=== PATIENT | female | born 1950 | race Caucasian/White ===

== ENCOUNTER → 2016-04-12 | Outpatient (CLI) | payer MEDICAID ==
[2016-04-12 17:00] LABS: ALANINE AMINOTRANSFERASE 24 U/L (9-52); ALBUMIN 4.2 g/dL (3.5-5.0); ALKALINE PHOSPHATASE 72 U/L (38-126); ANION GAP 10 (5-19); ASPARTATE AMINO TRANSFERASE 21 U/L (14-36); BILIRUBIN,TOTAL 0.4 mg/dL (0.2-1.3); BLOOD UREA NITROGEN 19 mg/dL (7-20); CARBON DIOXIDE 32 mmol/L (22-30); CHLORIDE 97 mmol/L (98-107); CREATININE RESULT 0.73 mg/dL (0.52-1.25); GLUCOSE 70 mg/dL (75-110); MAGNESIUM 2.1 mg/dL (1.6-2.3); POTASSIUM 4.2 mmol/L (3.6-5.0); TOTAL PROTEIN 7.1 g/dL (6.3-8.2)
== END ==
LOC: OD 15:29
PROVIDERS: ATTEND Internal Medicine Cardiovascular Disease
DX: R18.8 Other ascites (principal)
CPT/HCPCS: 36415; 80053; 83735; 83880

== ENCOUNTER 2016-10-28 19:41 | Emergency (ER) | payer MEDICAID ==
[2016-10-28] MEDS ORDERED: ASPIRIN 81 MG TABLET, CHEWABLE PO ONE (20:06)
--- NOTE | 2016-10-28 20:09 | ER Document Report ---
ED Medical Screen (RME) - General Chief Complaint: Chest Tightness Stated Complaint: CHEST PAIN,FALL/SWOLLEN FEET Time Seen by Provider: 10/28/16 20:06 Mode of Arrival: Ambulatory Information source: Patient Notes: 35-year-old female presents to ED for bilateral pedal edema with tightness in her chest. She states the swelling is been for a week but the tightness in her chest is been since the morning. She states she fell yesterday and now today she has pain in her right fifth toe that is turning dark. He has a past medical history of CHF mitral valve regurgitation cardiomyopathy blood pressure cholesterol anxiety. She states she has a 20% ejection fraction has a history of arthritis. I have greeted and performed a rapid initial assessment of this patient. A comprehensive ED assessment and evaluation of the patient, analysis of test results and completion of medical decision making process will be conducted by an additional ED providers. TRAVEL OUTSIDE OF THE [place] IN LAST 30 DAYS: No - Related Data Allergies/Adverse Reactions: Penicillins Allergy (Verified 01/18/16 12:49) Past Medical History - Past Medical History Cardiac Medical History: Reports: Hx Congestive Heart Failure Pulmonary Medical History: Reports: Hx Asthma Neurological Medical History: Reports: Hx Migraine Musculoskeltal Medical History: Reports Hx Fibromyalgia Past Surgical History: Reports: Hx Hysterectomy
[2016-10-28 20:31] LABS: ABSOLUTE BASOPHILS # (AUTO) 0.1 10^3/uL (0.0-0.2); ABSOLUTE EOSINOPHILS # (AUTO) 0.1 10^3/uL (0.0-0.6); ABSOLUTE LYMPHOCYTES (AUTO) 2.9 10^3/uL (0.5-4.7); ABSOLUTE MONOCYTES (AUTO) 0.8 10^3/uL (0.1-1.4); ABSOLUTE NEUT (AUTO) 8.7 10^3/uL (1.7-8.2); BASOPHILS % (AUTO) 0.7 % (0-2); EOSINOPHILS % (AUTO) 1.2 % (0-6); HEMATOCRIT 40.8 % (36.0-47.0); HGB HCT DIFFERENCE 1.2; LYMPHOCYTES % (AUTO) 23.2 % (13-45); MEAN CORPUSCULAR HEMOGLOBIN 30.7 pg (27.0-33.4); MEAN CORPUSCULAR HGB CONC 34.3 g/dL (32.0-36.0); MEAN CORPUSCULAR VOLUME 89 fl (80-97); MONOCYTES % (AUTO) 6.2 % (3-13); RED BLOOD COUNT 4.56 10^6/uL (3.72-5.28); RED CELL DISTRIBUTION WIDTH 14.9 % (11.5-14.0); SEGMENTED NEUTROPHILS % (AUTO) 68.7 % (42-78); WHITE BLOOD COUNT 12.6 10^3/uL (4.0-10.5)
--- NOTE | 2016-10-28 20:44 | RADIOLOGY REPORT (SQ) ---
EXAM DESCRIPTION: CHEST PA/LAT COMPLETED DATE/TIME: 10/28/2016 8:35 pm REASON FOR STUDY: chest pain chf ankle edema COMPARISON: 03/29/2016 EXAM PARAMETERS: NUMBER OF VIEWS: two views TECHNIQUE: Digital Frontal and Lateral radiographic views of the chest acquired. RADIATION DOSE: NA LIMITATIONS: none FINDINGS: LUNGS AND PLEURA: No opacities, masses or pneumothorax. No pleural effusion. MEDIASTINUM AND HILAR STRUCTURES: No masses or contour abnormalities. HEART AND VASCULAR STRUCTURES: Heart normal size. No evidence for failure. BONES: No acute findings. HARDWARE: None in the chest. OTHER: No other significant finding. IMPRESSION: NO SIGNIFICANT RADIOGRAPHIC FINDING IN THE CHEST. TECHNICAL DOCUMENTATION: JOB ID: [id number] [employer]- All Rights Reserved
[2016-10-28 20:45] LABS: ALANINE AMINOTRANSFERASE 37 U/L (9-52); ALBUMIN 4.5 g/dL (3.5-5.0); ALKALINE PHOSPHATASE 68 U/L (38-126); ANION GAP 9 (5-19); ASPARTATE AMINO TRANSFERASE 29 U/L (14-36); BILIRUBIN,DIRECT 0.4 mg/dL (0.0-0.4); BILIRUBIN,TOTAL 0.6 mg/dL (0.2-1.3); BLOOD UREA NITROGEN 17 mg/dL (7-20); CARBON DIOXIDE 31 mmol/L (22-30); CHLORIDE 102 mmol/L (98-107); CREATINE KINASE 138 U/L (30-135); CREATININE RESULT 0.88 mg/dL (0.52-1.25); GLUCOSE 98 mg/dL (75-110); MAGNESIUM 1.9 mg/dL (1.6-2.3); POTASSIUM 3.3 mmol/L (3.6-5.0); SODIUM 141.9 mmol/L (137-145); TOTAL PROTEIN 7.4 g/dL (6.3-8.2)
--- NOTE | 2016-10-28 20:45 | RADIOLOGY REPORT (SQ) ---
EXAM DESCRIPTION: FOOT RIGHT COMPLETE COMPLETED DATE/TIME: 10/28/2016 8:35 pm REASON FOR STUDY: pain and swelling to 5th toe COMPARISON: None. NUMBER OF VIEWS: Three views. TECHNIQUE: AP, lateral and oblique radiographic images acquired of the right foot. LIMITATIONS: None. FINDINGS: MINERALIZATION: Normal. BONES: Old healed fracture of the 5th metatarsal. JOINTS: No effusions. SOFT TISSUES: No soft tissue swelling. No foreign body. OTHER: No other significant finding. IMPRESSION: Old healed fracture of the 5th metatarsal. TECHNICAL DOCUMENTATION: JOB ID: [id number] [employer]- All Rights Reserved
[2016-10-28 20:58] LABS: CREATINE KINASE MB 1.83 ng/mL (<4.55); TROPONIN I < 0.012 ng/mL
[2016-10-28 23:52] VITALS: BP 106/72
[2016-10-29] MEDS ORDERED: FUROSEMIDE INJ/PF 40 MG/4 ML SDV IV ONE (00:25)
--- NOTE | 2016-10-29 00:31 | ER Document Report ---
ED General - General Chief Complaint: Chest Tightness Stated Complaint: CHEST PAIN,FALL/SWOLLEN FEET Time Seen by Provider: 10/28/16 20:06 Mode of Arrival: Ambulatory Notes: Patient is a 65-year-old female with past medical history of CHF, EF of 20%, who presents with bilateral lower extremity swelling for the past 2 weeks that is gotten progressively worse. States she has been taking Bumex 2 mg twice daily without resolution. States that usually she retained fluid in her lower abdomen not in her legs. She does report an associated dull, constant, aching pain to the bilateral lower legs which is not improved by anything and is worsened by movement or walking. She denies any shortness of breath, orthopnea or pain radiating into her arms, jaw or back. States she did have a brief episode of right-sided chest pain that she describes a mild, throbbing pain that resolved shortly after it started at approximately 8 or 9 AM this morning has not had recurrence since. She has not seen her primary care doctor or [employer] network architect regarding today's concerns. TRAVEL OUTSIDE OF THE [place] IN LAST 30 DAYS: No - Related Data Allergies/Adverse Reactions: Penicillins Allergy (Verified 10/28/16 20:11) Past Medical History - General Information source: Patient - Social History Smoking Status: Current Every Day Smoker Chew tobacco use (# tins/day): No Frequency of alcohol use: Occasional Drug Abuse: None Lives with: Spouse/Significant other Family History: Reviewed & Not Pertinent, Other Patient has suicidal ideation: No Patient has homicidal ideation: No - Past Medical History Cardiac Medical History: Reports: Hx Congestive Heart Failure, Hx Hypertension Pulmonary Medical History: Reports: Hx Asthma Neurological Medical History: Reports: Hx Migraine Renal/ Medical History: Denies: Hx Peritoneal Dialysis Musculoskeltal Medical History: Reports Hx Fibromyalgia Past Surgical History: Reports: Hx Hysterectomy - Immunizations Hx Diphtheria, Pertussis, Tetanus Vaccination: Yes Review of Systems - Review of Systems Notes: Constitutional: Negative for fever. HENT: Negative for sore throat. Eyes: Negative for visual changes. Cardiovascular: Negative for chest pain. Respiratory: Negative for shortness of breath. Gastrointestinal: Negative for abdominal pain, vomiting or diarrhea. Genitourinary: Negative for dysuria. Musculoskeletal: Positive for bilateral leg pain Skin: Negative for rash. Neurological: Negative for headaches, weakness or numbness. 10 point ROS negative except as marked above and in HPI. Physical Exam - Vital signs Vitals: Temp Pulse Resp BP Pulse Ox 98.6 F 91 16 121/87 H 99 10/28/16 20:02 10/28/16 20:02 10/28/16 20:02 10/28/16 20:02 10/28/16 20:02 Interpretation: Normal Notes: PHYSICAL EXAMINATION: GENERAL: Well-appearing, well-nourished and in no acute distress. HEAD: Atraumatic, normocephalic. EYES: Pupils equal round and reactive to light, extraocular movements intact, sclera anicteric, conjunctiva are normal. ENT: nares patent, oropharynx clear without exudates. Moist mucous membranes. NECK: Normal range of motion, supple without lymphadenopathy LUNGS: Breath sounds clear to auscultation bilaterally and equal. No wheezes rales or rhonchi. HEART: Regular rate and rhythm without murmurs ABDOMEN: Soft, nontender, normoactive bowel sounds. No guarding, no rebound. No masses appreciated. EXTREMITIES: Normal range of motion, 2+ pitting edema in the bilateral lower extremities to the mid tibial surface equal and symmetric NEUROLOGICAL: No focal neurological deficits. Moves all extremities spontaneously and on command. PSYCH: Normal mood, normal affect. SKIN: Warm, Dry, normal turgor, no rashes or lesions noted. Course - Re-evaluation Re-evalutation: 10/29/16 00:27 Patient presents with concerns of bilateral lower extremity edema that is been present for the past 1 week that is causing difficulty with mobility. Patient is overall well in appearance, no acute distress, vitals within normal limits at time of my assessment. She has no tachypnea, hypoxemia or tachycardia. Patient did complain of some right-sided chest tightness earlier today but that resolved over 8 hours prior to presentation. Patient does have 2+ pitting edema in the bilateral lower extremities, 4+ in the pedal region. It is equal and symmetric. I do not suspect an acute DVT. Patient does have a history of congestive heart failure with an ejection fraction of 20% and does currently take bumetanide 2 mg twice daily. She has requested a dose of IV Lasix here in the emergency department which I am agreeable to. She will be given a single dose of 40 mg IV and loss of compression stockings placed prior to discharge. I have instructed her to begin taking Bumex 2 mg 3 times daily for 3 days and then return to her normal dosing. I have also instructed her to follow-up closely with her cis[employer] network architect that she may need long-term just dosing adjustment for her diuretic. Regarding her episode of chest pressure, I do not suspect acute coronary syndrome, acute PE or aortic dissection. EKG without ischemic changes, troponin is normal, chest x-ray without evidence of pulmonary edema, pneumothorax or widened mediastinum. She is pain-free at time of my assessment. At this time will discharge with return precautions and follow-up recommendations. Verbal discharge instructions given a the bedside and opportunity for questions given. Medication warnings reviewed. Patient is in agreement with this plan and has verbalized understanding of return precautions and the need for primary care follow-up in the next 24-72 hours. - Vital Signs Vital signs: Temp Pulse Resp BP Pulse Ox 98.6 F 76 16 106/72 95 10/28/16 20:02 10/28/16 23:46 10/28/16 23:46 10/28/16 23:46 10/28/16 23:46 - Laboratory Result Diagrams: 10/28/16 20:10 10/28/16 20:10 Laboratory results interpreted by me: 10/28/16 10/28/16 10/28/16 20:10 20:10 20:10 WBC 12.6 H RDW 14.9 H Absolute Neutrophils 8.7 H Potassium 3.3 L Carbon Dioxide 31 H Creatine Kinase 138 H NT-Pro-B Natriuret Pep 1310 H - Diagnostic Test Radiology reviewed: Image reviewed, Reports reviewed Radiology results interpreted by me: 10/29/16 00:30 Chest x-ray: No pulmonary edema, vascular congestion or widened mediastinum - EKG Interpretation by Me Additional EKG results interpreted by me: 10/29/16 00:30 Normal sinus rhythm. Rate 89. No ST elevations or depressions. QTC is 492. Discharge - Discharge Clinical Impression: Bilateral lower extremity edema Chest pain Qualifiers: Chest pain type: unspecified Qualified Code(s): R07.9 - Chest pain, unspecified Condition: Good Disposition: HOME, SELF-CARE Additional Instructions: Increase your bumetanide also known as Bumex to 2 mg 3 times daily for the next 3 days. After that please return to normal dosing of 2 mg twice daily. Wear the compression stockings. This should result in decreased fluid in your legs. Please follow-up with your cisco network architect in the next several days to discuss if you need long-term dosing adjustment to your diuretic. Return for any additional symptoms that are worrisome to you including chest pain, shortness of breath, passing out, or any other symptoms that are worrisome to you. Referrals: ALVARADO BAXTER MD [Primary Care Provider] - Follow up as needed
--- NOTE | 2016-10-29 03:37 | EKG REPORT ---
SEVERITY:- ABNORMAL ECG - SINUS RHYTHM PROBABLE LEFT ATRIAL ABNORMALITY CONSIDER POSTERIOR INFARCT BORDERLINE PROLONGED QT INTERVAL : Confirmed by: Abbie Hoffman MD 29-Oct-2016 03:36:30
== END 2016-10-29 01:06 | disposition home or self-care (01) ==
LOC: ER 19:41
DX: I11.0 Hypertensive heart disease with heart failure (principal); I50.9 Heart failure, unspecified; R60.0 Localized edema; M79.662 Pain in left lower leg; M79.661 Pain in right lower leg; R07.89 Other chest pain; J45.909 Unspecified asthma, uncomplicated; F17.200 Nicotine dependence, unspecified, uncomplicated; Z79.899 Other long term (current) drug therapy
CPT/HCPCS: 93005; 99285; 96374; 36415; 82553; 82550; 83735; 85025; 80053; 84484; 85379; 83880; 71020; 73630; 93010; J1940

== ENCOUNTER 2017-03-01 07:13 | Emergency (ER) | payer MEDICAID ==
--- NOTE | 2017-03-01 08:06 | ER Document Report ---
ED General <GARLAND CASTORNEA - Last Filed: 03/01/17 11:53> - General Mode of Arrival: Ambulatory Information source: Patient TRAVEL OUTSIDE OF THE [place] IN LAST 30 DAYS: No <ERMA HUSSEIN - Last Filed: 03/01/17 14:19> - General Chief Complaint: Dizziness Stated Complaint: WEAKNESS Time Seen by Provider: 03/01/17 07:39 Notes: Patient is a 66 year old female that presents to the emergency department today with complaints of vomiting which began last night at 2300. Patient states that she has not vomited or felt nauseated since receiving zofran from EMS on her way here. Patient states she had a fall one or two days ago and after that fall she developed "immediate short term memory loss". Patient mentions that she attempted to call her girlfriend in [place] but could not remember her number which is unusual as she calls her on a daily basis. Patient states she thinks she fell on her knees as they were scraped up. Patient is somewhat of a poor historian so history is limited. (ERMA HUSSEIN) - Related Data Allergies/Adverse Reactions: Penicillins Allergy (Verified 10/28/16 20:11) Past Medical History - General Information source: Patient - Social History Smoking Status: Current Every Day Smoker Cigarette use (# per day): Yes Frequency of alcohol use: None Drug Abuse: None Lives with: Family Family History: Reviewed & Not Pertinent, Other Patient has suicidal ideation: No Patient has homicidal ideation: No - Past Medical History Cardiac Medical History: Reports: Hx Congestive Heart Failure, Hx Hypertension Pulmonary Medical History: Reports: Hx Asthma Neurological Medical History: Reports: Hx Migraine Musculoskeltal Medical History: Reports Hx Fibromyalgia Past Surgical History: Reports: Hx Hysterectomy - Immunizations Hx Diphtheria, Pertussis, Tetanus Vaccination: Yes <ERMA HUSSEIN - Last Filed: 03/01/17 14:19> Review of Systems - Review of Systems Constitutional: No symptoms reported EENT: See HPI, Other - dry mouth Cardiovascular: No symptoms reported Respiratory: No symptoms reported Gastrointestinal: See HPI, Vomiting Genitourinary: No symptoms reported Female Genitourinary: No symptoms reported Musculoskeletal: No symptoms reported Skin: No symptoms reported Hematologic/Lymphatic: No symptoms reported Neurological/Psychological: See HPI, Other - "short term memory loss" -: Yes All other systems reviewed and negative <JOVITAERMA - Last Filed: 03/01/17 14:19> Physical Exam <GARLAND CASTORENA - Last Filed: 03/01/17 11:53> - Vital signs Interpretation: Normal - General General appearance: Appears well, Alert, Other - wearing sunglasses - HEENT Head: Normocephalic, Atraumatic Eyes: Normal Pupils: PERRL - Respiratory Respiratory status: No respiratory distress Breath sounds: Rhonchi, Wheezing, Other - not dyspneic Chest palpation: Normal - Cardiovascular Rhythm: Regular Heart sounds: Normal auscultation Murmur: No - Abdominal Inspection: Normal Distension: No distension Bowel sounds: Normal Tenderness: Nontender Organomegaly: No organomegaly - Back Back: Normal, Nontender - Extremities General upper extremity: Normal inspection, Normal ROM. No: Edema General lower extremity: Normal inspection, Normal ROM. No: Edema - Neurological Neuro grossly intact: Yes Cognition: Normal Orientation: AAOx4 Hawley Coma Scale Eye Opening: Spontaneous Hawley Coma Scale Verbal: Oriented Purnima Coma Scale Motor: Obeys Commands Hawley Coma Scale Total: 15 Speech: Normal - Psychological Associated symptoms: Normal affect, Normal mood - Skin Skin Temperature: Warm Skin Moisture: Dry Skin Color: Normal <JOVITAERMA - Last Filed: 03/01/17 14:19> - Vital signs Vitals: Temp Pulse Resp Pulse Ox 97.9 F 93 17 95 03/01/17 07:25 03/01/17 07:25 03/01/17 07:25 03/01/17 07:25 - HEENT Notes: no nystagmus (ERMA HUSSEIN) Course - Laboratory Result Diagrams: 03/01/17 08:55 03/01/17 08:55 - Diagnostic Test Radiology reviewed: Image reviewed, Reports reviewed - CT scan of the head is unremarkable. MRI of the brain is unremarkable. - EKG Interpretation by [place] EKG shows normal: Sinus rhythm, [place], Intervals, QRS Complexes. abnormal: ST-T Waves - Patient has inverted T waves in the lateral leads. This was not present in September of this year, however it was present on the EKG done prior to that one. Rate: Normal - 95 Rhythm: NSR <GARLAND CASTORENA - Last Filed: 03/01/17 11:53> - Laboratory Result Diagrams: 03/01/17 08:55 03/01/17 08:55 <ERMA HUSSEIN - Last Filed: 03/01/17 14:19> - Re-evaluation Re-evalutation: 03/01/17 11:53 Patient is quite anxious. She keeps wanting to know "what is causing all of this". When I asked her to explain she says when she lays down air comes up out of her, and she gets nauseous. There are multiple confusing vague complaints, including her complaint of short-term memory loss. I did an MRI of her brain which is unremarkable. I asked her about running out of her Xanax and she admits to running out 2 days ago and was supposed to see her doctor at 11:00 today to get refills. She is on chronic narcotic and benzodiazepine maintenance for many years. I advised the patient that we do not refill prescriptions for chronic pain medications or chronic benzodiazepine treatment in the emergency room. She will need to go see her doctor. (GARLAND CASTORENA) - Vital Signs Vital signs: Temp Pulse Resp BP Pulse Ox 97.9 F 93 17 95 03/01/17 07:25 03/01/17 07:25 03/01/17 07:25 03/01/17 07:25 - Laboratory Laboratory results interpreted by me: 03/01/17 03/01/17 03/01/17 08:39 08:55 08:55 WBC 13.1 H RDW 14.1 H Seg Neutrophils % 79.7 H Absolute Neutrophils 10.4 H Sodium 134.3 L Potassium 2.9 L* Chloride 88 L Carbon Dioxide 33 H BUN 29 H Creatinine 1.58 H Est GFR ( Amer) 40 L Est GFR (Non-Af Amer) 33 L Glucose 112 H Ur Leukocyte Esterase TRACE H Discharge <GARLAND CASTORENA - Last Filed: 03/01/17 11:53> <ERMA HUSSEIN - Last Filed: 03/01/17 14:19> - Discharge Clinical Impression: Has run out of medications Nausea and vomiting Qualifiers: Vomiting type: unspecified Vomiting Intractability: non-intractable Qualified Code(s): R11.2 - Nausea with vomiting, unspecified Benzodiazepine withdrawal Qualifiers: Complication of substance-induced condition: with unspecified complication Qualified Code(s): F13.239 - Sedative, hypnotic or anxiolytic dependence with withdrawal, unspecified Condition: Stable Disposition: HOME, SELF-CARE Additional Instructions: Your symptoms are most likely due to running out of your Xanax medication. A thorough evaluation looking at your blood chemistries, complete blood counts, liver function tests, and urine was unremarkable. A CT scan of your brain and an MRI of your brain do not show evidence of stroke or injury. You will need to follow-up with your primary care provider for refilling your Xanax medication. RETURN TO THE EMERGENCY ROOM IF ANY NEW OR WORSENING SYMPTOMS. Referrals: PAIGE SHI MD [NO LOCAL MD] - Follow up as needed Scribe Attestation: 03/01/17 08:22 I personally performed the services described in the documentation, reviewed and edited the documentation which was dictated to the scribe in my presence, and it accurately records my words and actions. (GARLAND CASTORENA) Scribe Documentation - Scribe Written by Scribe:: Cassidy Mendez, 03/01/2017 0905 acting as scribe for :: Maye <ERMA HUSSEIN - Last Filed: 03/01/17 14:19>
--- NOTE | 2017-03-01 08:36 | RADIOLOGY REPORT (SQ) ---
EXAM DESCRIPTION: CT HEAD WITHOUT COMPLETED DATE/TIME: 03/01/2017 8:22 am REASON FOR STUDY: Acute short-term memory deficit after a fall COMPARISON: 11/16/2015. TECHNIQUE: Axial images acquired through the brain without intravenous contrast. Images reviewed wi th bone, brain and subdural windows. Images stored on PACS. All CT scanners at this facility use dose modulation, iterative reconstruction, and/or weight based d osing when appropriate to reduce radiation dose to as low as reasonably achievable (ALARA). [facility]: Dose Right [facility]: CareDose [facility]: Dose Right [facility]: Teradose 4D [facility]: Gateway 3D RADIATION DOSE: mGy. LIMITATIONS: None. FINDINGS: VENTRICLES: Normal size and contour. CEREBRUM: No masses. No hemorrhage. No midline shift. No evidence for acute infarction. Normal gra y/white matter differentiation. No areas of low density in the white matter. CEREBELLUM: No masses. No hemorrhage. No alteration of density. No evidence for acute infarction. EXTRAAXIAL SPACES: No fluid collections. No masses. ORBITS AND GLOBE: No intra- or extraconal masses. Normal contour of globe without masses. CALVARIUM: No fracture. PARANASAL SINUSES: No fluid or mucosal thickening. SOFT TISSUES: No mass or hematoma. OTHER: No other significant finding. IMPRESSION: NORMAL BRAIN CT WITHOUT CONTRAST. EVIDENCE OF ACUTE STROKE: NO. COMMENT: Quality ID # [id number]: Final reports with documentation of one or more dose reduction techniques (e.g., Automated exposure control, adjustment of the mA and/or kV according to patient size, use of iterative reconstruction technique) TECHNICAL DOCUMENTATION: JOB ID: [id number] [employer]- All Rights Reserved
[2017-03-01 08:58] LABS: APPEARANCE,URINE CLOUDY; BILIRUBIN,URINE NEGATIVE (NEGATIVE); GLUCOSE, URINE NEGATIVE (NEGATIVE); KETONES,URINE NEGATIVE (NEGATIVE); LEUKOCYTE ESTERASE,URINE TRACE (NEGATIVE); NITRITE,URINE NEGATIVE (NEGATIVE); PROTEIN,URINE NEGATIVE (NEGATIVE); URINE SPECIFIC GRAVITY 1.015; UROBILINOGEN,URINE NEGATIVE mg/dL (<2.0)
[2017-03-01 09:14] LABS: HYALINE CASTS, URINE 20-30 /LPF
[2017-03-01 09:15] LABS: BACTERIA,URINE 2+ /HPF
[2017-03-01 09:36] LABS: ABSOLUTE BASOPHILS # (AUTO) 0.1 10^3/uL (0.0-0.2); ABSOLUTE EOSINOPHILS # (AUTO) 0.1 10^3/uL (0.0-0.6); ABSOLUTE LYMPHOCYTES (AUTO) 1.9 10^3/uL (0.5-4.7); ABSOLUTE MONOCYTES (AUTO) 0.6 10^3/uL (0.1-1.4); ABSOLUTE NEUT (AUTO) 10.4 10^3/uL (1.7-8.2); BASOPHILS % (AUTO) 0.4 % (0-2); EOSINOPHILS % (AUTO) 0.7 % (0-6); HEMATOCRIT 41.5 % (36.0-47.0); HEMOGLOBIN 14.6 g/dL (12.0-15.5); HGB HCT DIFFERENCE 2.3; LYMPHOCYTES % (AUTO) 14.6 % (13-45); MEAN CORPUSCULAR HEMOGLOBIN 30.1 pg (27.0-33.4); MEAN CORPUSCULAR HGB CONC 35.1 g/dL (32.0-36.0); MEAN CORPUSCULAR VOLUME 86 fl (80-97); MONOCYTES % (AUTO) 4.6 % (3-13); RED BLOOD COUNT 4.84 10^6/uL (3.72-5.28); RED CELL DISTRIBUTION WIDTH 14.1 % (11.5-14.0); SEGMENTED NEUTROPHILS % (AUTO) 79.7 % (42-78); WHITE BLOOD COUNT 13.1 10^3/uL (4.0-10.5)
[2017-03-01] MEDS ORDERED: LORAZEPAM INJ 2 MG/1 ML VIAL IV ONE (09:39)
[2017-03-01 09:56] LABS: ALANINE AMINOTRANSFERASE 49 U/L (9-52); ALBUMIN 4.2 g/dL (3.5-5.0); ALKALINE PHOSPHATASE 88 U/L (38-126); ANION GAP 13 (5-19); ASPARTATE AMINO TRANSFERASE 31 U/L (14-36); BILIRUBIN,DIRECT 0.4 mg/dL (0.0-0.4); BILIRUBIN,TOTAL 0.7 mg/dL (0.2-1.3); BLOOD UREA NITROGEN 29 mg/dL (7-20); CALCIUM 9.6 mg/dL (8.4-10.2); CARBON DIOXIDE 33 mmol/L (22-30); CHLORIDE 88 mmol/L (98-107); CREATINE KINASE 62 U/L (30-135); CREATININE RESULT 1.58 mg/dL (0.52-1.25); GLUCOSE 112 mg/dL (75-110); LIPASE 123.9 U/L (23-300); MAGNESIUM 1.9 mg/dL (1.6-2.3); SODIUM 134.3 mmol/L (137-145); TOTAL PROTEIN 6.9 g/dL (6.3-8.2)
[2017-03-01 10:08] LABS: CREATINE KINASE MB 0.54 ng/mL (<4.55)
[2017-03-01 10:20] LABS: POTASSIUM 2.9 mmol/L (3.6-5.0); TROPONIN I < 0.012 ng/mL
[2017-03-01] MEDS ORDERED: POTASSIUM CHLORIDE 20 MEQ/15 ML UDCUP PO ONE (10:34)
--- NOTE | 2017-03-01 11:18 | RADIOLOGY REPORT (SQ) ---
EXAM DESCRIPTION: MRI HEAD WITHOUT COMPLETED DATE/TIME: 03/01/2017 11:04 am REASON FOR STUDY: acute short term memory deficit COMPARISON: CT dated 03/01/2017. TECHNIQUE: Multiplanar imaging includes non-contrasted T1, T2, FLAIR, and diffusion with ADC map seq uences. Images stored on PACS. LIMITATIONS: None. FINDINGS: ANATOMY: No anomalies. Normal vascular flow voids. Pituitary fossa normal. CSF SPACES: Normal in size and contour. No hemorrhage. CEREBRUM: Sulci and gyri normal in size and contour. Normal white matter signal on FLAIR imaging. No evidence of hemorrhage, mass, or extraaxial fluid collection. POSTERIOR FOSSA: No signal alteration. No hemorrhage. No edema, masses or mass effect. Internal eveline tory canals, cerebello-pontine angles, mastoids normal. DIFFUSION IMAGING: Negative for acute or sub-acute infarction. ORBITS: No masses. Globes normal. PARANASAL SINUSES: No fluid levels. Mucosa normal. OTHER: No other significant finding. IMPRESSION: NORMAL MRI OF THE BRAIN WITHOUT INTRAVENOUS GADOLINIUM CONTRAST. EVIDENCE OF ACUTE STROKE: NO. TECHNICAL DOCUMENTATION: JOB ID: [id number] [employer]- All Rights Reserved
--- NOTE | 2017-03-01 13:14 | EKG REPORT ---
SEVERITY:- ABNORMAL ECG - SINUS RHYTHM ABNORMAL T, CONSIDER ISCHEMIA, MANGO LATERAL LEADS : Confirmed by: Cam Logan MD 01-Mar-2017 13:14:01
== END 2017-03-01 12:33 | disposition home or self-care (01) ==
LOC: ER 07:13
DX: R11.2 Nausea with vomiting, unspecified (principal); F13.239 Sedative, hypnotic or anxiolytic dependence with withdrawal, unspecified; R53.1 Weakness; R42 Dizziness and giddiness; F17.210 Nicotine dependence, cigarettes, uncomplicated; I50.9 Heart failure, unspecified; I11.0 Hypertensive heart disease with heart failure; Z88.0 Allergy status to penicillin; Z90.710 Acquired absence of both cervix and uterus
CPT/HCPCS: 93005; 99284; 96374; 36415; 82553; 82550; 83690; 83735; 85025; 80053; 81001; 84484; 70551; 70450; 93010; J2060; J3490

== ENCOUNTER 2017-03-05 09:05 | Inpatient (IN) | payer MEDICAID ==
[2017-03-05] MEDS ORDERED: ZIPRASIDONE MESYLATE INJ/PF 20 MG SDV IM ONE (09:19)
--- NOTE | 2017-03-05 09:32 | ER Document Report ---
ED General - General Stated Complaint: PSYCH EVAL Time Seen by Provider: 03/05/17 09:12 Cannot obtain history due to: Dementia, Uncooperative Notes: 66-year-old female with multiple medical problems goading high blood pressure diabetes reduced ejection fraction but no psychiatric history presents brought in by EMS after being found naked on her front porch. Per her she has been acting differently for 2 days. is not present so I cannot get a history and the patient is not in any shape to give a history. Immediately upon entering the room the patient calls me a "delirious mother f-er." TRAVEL OUTSIDE OF THE [place] IN LAST 30 DAYS: No - Related Data Allergies/Adverse Reactions: Penicillins Allergy (Verified 03/05/17 09:48) Past Medical History - General Cannot obtain history due to: Dementia, Mentally challenged - Social History Smoking Status: Unknown if Ever Smoked Family History: Reviewed & Not Pertinent, Other - Past Medical History Cardiac Medical History: Reports: Hx Congestive Heart Failure, Hx Hypertension Pulmonary Medical History: Reports: Hx Asthma Neurological Medical History: Reports: Hx Migraine Renal/ Medical History: Denies: Hx Peritoneal Dialysis Musculoskeltal Medical History: Reports Hx Fibromyalgia Past Surgical History: Reports: Hx Hysterectomy - Immunizations Hx Diphtheria, Pertussis, Tetanus Vaccination: Yes Review of Systems - Review of Systems Notes: REVIEW OF SYSTEMS Not able to obtain secondary to mental status PHYSICAL EXAMINATION General: No acute distress, well-nourished Head: Atraumatic, normocephalic ENT: Mouth normal, oropharynx moist, no exudates or tonsillar enlargement Eyes: Conjunctiva normal, pupils equal, lids normal Neck: No JVD, supple, no guarding CVS: Normal rate, regular rhythm, no murmurs Resp: No resp distress, equal and normal breath sounds bilaterally GI: Nondistended, soft, no tenderness to palpation, no rebound or guarding Ext: No deformities, no edema, normal range of motion in upper and lower ext Back: No CVA or midline TTP Skin: No rash, warm Lymphatic: No lymphadeopathy noted Neuro: Awake, alert. Face symmetric. GCS 15. Fighting strongly with all 4 extremities. Not oriented to person place or time. Gastric: Appears pressured, disorganized thought process Physical Exam - Vital signs Vitals: BP 110/77 03/05/17 09:13 Course - Re-evaluation Re-evalutation: 03/05/17 09:21 66-year-old female presents with delirium versus psychosis. Given her large amount of medical problems and her age this is likely more delirium and psychiatric primarily, however to work her up she will need something to control behavior. Already received intramuscular sedation from paramedics. That said she is quite agitated and I am worried we will not be able to care for her without calming her down. Ordered intramuscular Geodon and will get a full laboratory workup including for renal failure electro abnormalities, hyponatremia, and get an EKG and chest x-ray as well as scan her head. 03/05/17 09:32 Reviewing the patient's records she was seen here 4 days ago for memory loss and anxiety in the setting of stopping her chronic benzodiazepines. On that visit she had both a CT and MRI of the brain both of which were normal and she was discharged with the diagnosis of narcotic and benzodiazepine withdrawal. I suspect she may be intoxicated with either. If not both. 03/05/17 11:54 Patient reassessed. She is more calm but still sounding psychotic and delirious. She received Versed prior to CT scan. They were finally able to obtain an ECG which shows plantar ST depressions in multiple precordial leads. I think I see P waves and I think this is sinus tachycardia with first-degree block and ST depression. There is no ST elevation. Patient will receive rectal aspirin and I will add a troponin. In terms of infectious etiology she has no white count or fever so I think that encephalopathy is less likely and will defer lumbar puncture. 03/05/17 12:34 Troponin is detectable but still negative. Admitted to Dr. Walter Khalil. - Vital Signs Vital signs: Temp Pulse Resp BP Pulse Ox 118 H 22 H 112/82 97 03/05/17 09:35 03/05/17 11:29 03/05/17 11:30 03/05/17 11:29 - Laboratory Result Diagrams: 03/05/17 11:30 03/05/17 11:30 Laboratory results interpreted by me: 03/05/17 03/05/17 03/05/17 11:30 11:30 11:30 RDW 14.3 H Potassium 3.3 L Est GFR (Non-Af Amer) 59 L Direct Bilirubin 0.6 H AST 67 H ALT 68 H Ammonia < 8.7 L Urine Ketones 03/05/17 11:30 RDW Potassium Est GFR (Non-Af Amer) Direct Bilirubin AST ALT Ammonia Urine Ketones 100 H Critical Care Note - Critical Care Note Total time excluding time spent on procedures (mins): 32 Comments: The above patient is critically ill. Not including procedures, but including direct re-evaluations, speaking with patient and/or consultants, interpreting results, and documenting, I spent the total amount of minute listed listed above on critical care time Discharge - Discharge Clinical Impression: Acute encephalopathy Condition: Fair Disposition: ADMITTED INPATIENT Admitting Provider: Hospitalist Unit Admitted: IMCU Referrals: ALVARADO BAXTER MD [Primary Care Provider] - Follow up as needed
[2017-03-05] MEDS ORDERED: MIDAZOLAM 2 MG/2 ML INJ IV ONE (11:02)
[2017-03-05 11:49] LABS: ABSOLUTE BASOPHILS # (AUTO) 0.1 10^3/uL (0.0-0.2); ABSOLUTE EOSINOPHILS # (AUTO) 0.2 10^3/uL (0.0-0.6); ABSOLUTE MONOCYTES (AUTO) 0.8 10^3/uL (0.1-1.4); ABSOLUTE NEUT (AUTO) 6.5 10^3/uL (1.7-8.2); BASOPHILS % (AUTO) 1.1 % (0-2); EOSINOPHILS % (AUTO) 1.9 % (0-6); HEMATOCRIT 42.2 % (36.0-47.0); HGB HCT DIFFERENCE 2.8; LYMPHOCYTES % (AUTO) 21.1 % (13-45); MEAN CORPUSCULAR HEMOGLOBIN 30.6 pg (27.0-33.4); MEAN CORPUSCULAR HGB CONC 35.5 g/dL (32.0-36.0); MEAN CORPUSCULAR VOLUME 86 fl (80-97); MONOCYTES % (AUTO) 8.4 % (3-13); RED BLOOD COUNT 4.91 10^6/uL (3.72-5.28); RED CELL DISTRIBUTION WIDTH 14.3 % (11.5-14.0); SEGMENTED NEUTROPHILS % (AUTO) 67.5 % (42-78); WHITE BLOOD COUNT 9.6 10^3/uL (4.0-10.5)
--- NOTE | 2017-03-05 11:52 | EKG REPORT ---
SEVERITY:- ABNORMAL ECG - SINUS TACHYCARDIA NONSPECIFIC REPOL ABNORMALITY, DIFFUSE LEADS BORDERLINE PROLONGED QT INTERVAL : Confirmed by: Lupillo Batista 05-Mar-2017 11:52:30
--- NOTE | 2017-03-05 11:52 | RADIOLOGY REPORT (SQ) ---
EXAM DESCRIPTION: CT HEAD WITHOUT COMPLETED DATE/TIME: 03/05/2017 11:41 am REASON FOR STUDY: ams COMPARISON: 03/01/2017 TECHNIQUE: Axial images acquired through the brain without intravenous contrast. Images reviewed wi th bone, brain and subdural windows. Images stored on PACS. All CT scanners at this facility use dose modulation, iterative reconstruction, and/or weight based d osing when appropriate to reduce radiation dose to as low as reasonably achievable (ALARA). [facility]: Dose Right [facility]: CareDose [facility]: Dose Right [facility]: Teradose 4D [facility]: Smart Nimbix RADIATION DOSE: Total exam DLP 1809 mGy cm LIMITATIONS: None. FINDINGS: VENTRICLES: Normal size and contour. CEREBRUM: No masses. No hemorrhage. No midline shift. No evidence for acute infarction. Normal gra y/white matter differentiation. No areas of low density in the white matter. CEREBELLUM: No masses. No hemorrhage. No alteration of density. No evidence for acute infarction. EXTRAAXIAL SPACES: No fluid collections. No masses. ORBITS AND GLOBE: No intra- or extraconal masses. Normal contour of globe without masses. CALVARIUM: No fracture. PARANASAL SINUSES: No fluid or mucosal thickening. SOFT TISSUES: No mass or hematoma. OTHER: No other significant finding. IMPRESSION: NORMAL BRAIN CT WITHOUT CONTRAST. EVIDENCE OF ACUTE STROKE: NO. COMMENT: Quality ID # [id number]: Final reports with documentation of one or more dose reduction techniques (e.g., Automated exposure control, adjustment of the mA and/or kV according to patient size, use of iterative reconstruction technique) TECHNICAL DOCUMENTATION: JOB ID: [id number] [employer]- All Rights Reserved
[2017-03-05] MEDS ORDERED: ASPIRIN 300 MG SUPP, RECTAL PR ONE (11:54)
[2017-03-05 12:07] LABS: ALANINE AMINOTRANSFERASE 68 U/L (9-52); ALBUMIN 4.1 g/dL (3.5-5.0); ALKALINE PHOSPHATASE 81 U/L (38-126); ANION GAP 16 (5-19); ASPARTATE AMINO TRANSFERASE 67 U/L (14-36); BILIRUBIN,DIRECT 0.6 mg/dL (0.0-0.4); BLOOD UREA NITROGEN 17 mg/dL (7-20); CARBON DIOXIDE 26 mmol/L (22-30); CHLORIDE 102 mmol/L (98-107); CREATININE RESULT 0.96 mg/dL (0.52-1.25); GLUCOSE 90 mg/dL (75-110); POTASSIUM 3.3 mmol/L (3.6-5.0); SODIUM 143.8 mmol/L (137-145); TOTAL PROTEIN 6.7 g/dL (6.3-8.2)
[2017-03-05 12:08] LABS: APPEARANCE,URINE SLIGHTLY HAZY; BILIRUBIN,URINE NEGATIVE (NEGATIVE); GLUCOSE, URINE NEGATIVE (NEGATIVE); KETONES,URINE 100 mg/dL (NEGATIVE); LEUKOCYTE ESTERASE,URINE NEGATIVE (NEGATIVE); NITRITE,URINE NEGATIVE (NEGATIVE); PROTEIN,URINE NEGATIVE (NEGATIVE); URINE SPECIFIC GRAVITY 1.012; UROBILINOGEN,URINE NEGATIVE mg/dL (<2.0)
[2017-03-05] MEDS ORDERED: ONDANSETRON HCL INJ/PF 4 MG/2 ML SDV IV PRN (14:50)
[2017-03-05] MEDS ORDERED: ONDANSETRON 4 MG TAB.RAPDIS PO PRN (14:50)
[2017-03-05] MEDS ORDERED: OXYCODONE-ACETAMINOPHEN 5-325 MG TABLET PO PRN (14:50)
[2017-03-05] MEDS ORDERED: ACETAMINOPHEN 325 MG TABLET PO PRN (14:50)
--- NOTE | 2017-03-05 15:08 | PDOC H&P ---
History of Present Illness Admission Date/PCP: 03/05/17 12:44 ALVARADO BAXTER MD Patient complains of: Confusion. History of Present Illness: RUDY REAL is a 66 year old female who is admitted for encephalopathy. The patient presented with confusion. Patient is very unhelpful and refused to give a full history. The patient reports that her main complaint is back pain. 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 The patient had a head CT that was unremarkable. Patient relates that she was in the emergency room yesterday and told to go up on her Xanax. She reports she has been taking more Xanax but it was DrMoe ordered. The patient is somewhat confused and is alert and oriented to person and place but not to time. She denies any headache. Denies any photophobia. Denies any fevers or chills. She does take chronic narcotics in the form of Opana according to the medical record however she is uncertain as to when she took her last pill or how many she took. The patient also is on a muscle relaxant baclofen. She is uncertain as to when she took that last. Her main concern is that she states she has to sleep because she has a dog at home unattended and that she has some painful emotional experience that occurred recently that she cannot discuss with me. Past Medical History Cardiac Medical History: Reports: Congestive Heart Failure, Hypertension Pulmonary Medical History: Reports: Asthma Neurological Medical History: Reports: Migraine Malignancy Medical History: Reports: None Musculoskeltal Medical History: Reports: Fibromyalgia Hematology: Reports: None Infectious Medical History: Reports: None Past Surgical History Past Surgical History: Reports: Hysterectomy Social History Information Source: Patient Lives with: Alone Smoking Status: Never Smoker Frequency of Alcohol Use: Rare Hx Recreational Drug Use: No Drugs: None Hx Prescription Drug Abuse: No - Advance Directive Resuscitation Status: Full Code Family History Family History: Other Family History: Patient could not remember any family history. Parental Family History Reviewed: Yes Children Family History Reviewed: No Sibling(s) Family History Reviewed.: No Medication/Allergy Home Medications: Alprazolam [Xanax 0.5 mg Tablet] 0.5 mg PO DAILYP PRN 03/05/17 Atorvastatin Calcium [Lipitor 40 mg Tablet] 40 mg PO QHS 03/05/17 Baclofen [Baclofen 20 mg Tablet] 20 mg PO Q6 03/05/17 Bisoprolol Fumarate [Zebeta 5 mg Tablet] 5 mg PO DAILY 03/05/17 Bumetanide [Bumex 2 mg Tablet] 2 mg PO Q12A 03/05/17 Fluticasone/Salmeterol [Advair 250-50 Diskus 28 dose] 1 puff IH Q12 03/05/17 Oxymorphone HCl [Opana] 5 mg PO Q6HP PRN 03/05/17 Spironolactone [Aldactone 25 mg Tablet] 25 mg PO DAILY 03/05/17 Allergies/Adverse Reactions: Penicillins Allergy (Verified 03/05/17 09:48) Review of Systems ROS unobtainable: Due to mental status Physical Exam Vital Signs: Temp Pulse Resp BP Pulse Ox 120 H 22 H 94/72 L 95 03/05/17 10:30 03/05/17 13:20 03/05/17 13:20 03/05/17 13:01 General appearance: PRESENT: no acute distress, well-developed, well-nourished Head exam: PRESENT: atraumatic, normocephalic Eye exam: PRESENT: conjunctival injection Ear exam: PRESENT: normal external ear exam Mouth exam: PRESENT: moist, tongue midline Neck exam: ABSENT: carotid bruit, JVD, lymphadenopathy, thyromegaly Respiratory exam: PRESENT: clear to auscultation estee. ABSENT: rales, rhonchi, wheezes Cardiovascular exam: PRESENT: RRR. ABSENT: diastolic murmur, rubs, systolic murmur Pulses: PRESENT: normal dorsalis pedis pul Vascular exam: PRESENT: normal capillary refill GI/Abdominal exam: PRESENT: normal bowel sounds, soft. ABSENT: distended, guarding, mass, organolmegaly, rebound, tenderness Rectal exam: PRESENT: deferred Extremities exam: PRESENT: full ROM. ABSENT: calf tenderness, clubbing, pedal edema Neurological exam: PRESENT: alert, awake, oriented to person, oriented to place , CN II-XII grossly intact. ABSENT: oriented to time, oriented to situation, motor sensory deficit Psychiatric exam: PRESENT: anxious Skin exam: PRESENT: dry, intact, warm. ABSENT: cyanosis, rash Results Impressions: Head CT 03/05/17 09:22 IMPRESSION: NORMAL BRAIN CT WITHOUT CONTRAST. EVIDENCE OF ACUTE STROKE: NO. Assessment & Plan - Diagnosis (1) Acute encephalopathy Is this a current diagnosis for this admission?: Yes Plan: The patient is somewhat confused. Etiology is unclear but I suspect is most likely medication related. The patient is on both benzodiazepines as well as muscle relaxants and narcotics. Will all of those for now and monitor. She had a head CT that showed no acute abnormalities. She may have some psychiatric issues that she reported having a severe emotional painful experience that she was unable to share with me. (2) Fibromyalgia Is this a current diagnosis for this admission?: Yes Plan: Patient is on chronic narcotics as well as baclofen. Will hold both of those for now. (3) Back pain Is this a current diagnosis for this admission?: Yes Plan: We will hold her narcotics for now given her confusion. (4) Asthma Is this a current diagnosis for this admission?: Yes (5) Congestive heart failure Is this a current diagnosis for this admission?: Yes Plan: Patient reports a history of congestive heart failure. Is unclear as to whether this is systolic or diastolic dysfunction. We will continue with the Bumex. - Time Time Spent: 50 to 70 Minutes - Inpatient Certification Medical Necessity: Need Close Monitoring Due to Risk of Patient Decompensation
[2017-03-05] MEDS: HALOPERIDOL LACTATE INJ 5 MG/1 ML VIAL IV PRN ×2 (15:33→19:19)
[2017-03-05] MEDS ORDERED: BUMETANIDE 1 MG TABLET PO SCH (18:00)
[2017-03-05] MEDS ORDERED: (PENDING PHARMACY ID) (Bumetanide [Bumex 2 Mg Tablet] 2 MG) PO SCH (18:00)
[2017-03-05] MEDS ORDERED: DIAZEPAM INJ 10 MG/2 ML DISP.SYRIN IV PRN (21:11)
[2017-03-05] MEDS: ATORVASTATIN CALCIUM 40 MG TABLET PO SCH (21:59)
[2017-03-05] MEDS: FAMOTIDINE 20 MG TABLET PO SCH (21:59)
[2017-03-05] MEDS ORDERED: ARIPIPRAZOLE 5 MG TABLET PO ONE (22:00)
[2017-03-05] MEDS ORDERED: FLUTICASONE/SALMETEROL DISKUS 250-50 MCG/DOSE IH ONE (22:17)
[2017-03-05] MEDS: FLUTICASONE/SALMETEROL DISKUS 250-50 MCG/DOSE IH SCH (23:12)
[2017-03-06] MEDS ORDERED: (PENDING PHARMACY ID) (Bisoprolol Fumarate [Zebeta 5 Mg Tablet] 5 MG) PO SCH (10:00)
[2017-03-06 10:09] LABS: ABSOLUTE BASOPHILS # (AUTO) 0.1 10^3/uL (0.0-0.2); ABSOLUTE EOSINOPHILS # (AUTO) 0.3 10^3/uL (0.0-0.6); ABSOLUTE LYMPHOCYTES (AUTO) 1.7 10^3/uL (0.5-4.7); ABSOLUTE MONOCYTES (AUTO) 0.7 10^3/uL (0.1-1.4); ABSOLUTE NEUT (AUTO) 5.8 10^3/uL (1.7-8.2); BASOPHILS % (AUTO) 1.1 % (0-2); EOSINOPHILS % (AUTO) 3.4 % (0-6); HEMATOCRIT 41.6 % (36.0-47.0); HEMOGLOBIN 15.1 g/dL (12.0-15.5); HGB HCT DIFFERENCE 3.7; LYMPHOCYTES % (AUTO) 20.1 % (13-45); MEAN CORPUSCULAR HEMOGLOBIN 31.2 pg (27.0-33.4); MEAN CORPUSCULAR HGB CONC 36.2 g/dL (32.0-36.0); MEAN CORPUSCULAR VOLUME 86 fl (80-97); MONOCYTES % (AUTO) 7.7 % (3-13); RED BLOOD COUNT 4.83 10^6/uL (3.72-5.28); RED CELL DISTRIBUTION WIDTH 14.3 % (11.5-14.0); SEGMENTED NEUTROPHILS % (AUTO) 67.7 % (42-78); WHITE BLOOD COUNT 8.6 10^3/uL (4.0-10.5)
[2017-03-06] MEDS: ATENOLOL 50 MG TABLET PO SCH (11:14)
[2017-03-06] MEDS: SPIRONOLACTONE 25 MG TABLET PO SCH (11:14)
[2017-03-06] MEDS: FAMOTIDINE 20 MG TABLET PO SCH ×2 (11:15→22:13)
[2017-03-06] MEDS: POTASSIUM CHLORIDE 10 MEQ TABLET.SA PO SCH ×2 (11:15→22:12)
[2017-03-06 11:43] LABS: ANION GAP 10 (5-19); BLOOD UREA NITROGEN 13 mg/dL (7-20); CALCIUM 10.2 mg/dL (8.4-10.2); CARBON DIOXIDE 31 mmol/L (22-30); CHLORIDE 98 mmol/L (98-107); CREATININE RESULT 0.89 mg/dL (0.52-1.25); GLUCOSE 87 mg/dL (75-110); POTASSIUM 3.4 mmol/L (3.6-5.0); SODIUM 139.2 mmol/L (137-145)
[2017-03-06] MEDS ORDERED: INFLUENZA ADLT QUAD (36MOS+) 2017-18 VAC 0.5 ML SYR IM PRN (11:57)
[2017-03-06] MEDS: DIAZEPAM 5 MG TABLET PO SCH ×2 (13:18→17:54)
[2017-03-06] MEDS: FLUTICASONE/SALMETEROL DISKUS 250-50 MCG/DOSE IH SCH ×2 (13:31→22:11)
--- NOTE | 2017-03-06 14:03 | PDOC PROGRESS REPORT ---
Subjective Progress Note for:: 03/06/17 Subjective:: Patient is still somewhat confused. She was concerned because she found out she was running around naked in the emergency room. Reason For Visit: ENCEPHALOPATHY Physical Exam Vital Signs: Temp Pulse Resp BP Pulse Ox 120 H 22 H 107/78 97 03/05/17 10:30 03/06/17 12:00 03/05/17 14:22 03/06/17 12:00 General appearance: PRESENT: no acute distress Eye exam: PRESENT: conjunctiva pink. ABSENT: scleral icterus Mouth exam: PRESENT: moist, tongue midline Neck exam: ABSENT: JVD Respiratory exam: PRESENT: clear to auscultation estee. ABSENT: rales, rhonchi, wheezes Cardiovascular exam: PRESENT: RRR. ABSENT: diastolic murmur, rubs, systolic murmur GI/Abdominal exam: PRESENT: normal bowel sounds, soft. ABSENT: distended, guarding, mass, organolmegaly, rebound, tenderness Extremities exam: PRESENT: full ROM. ABSENT: calf tenderness, clubbing, pedal edema Neurological exam: PRESENT: alert, awake, oriented to person, oriented to place. ABSENT: oriented to time, oriented to situation Psychiatric exam: PRESENT: unusual affect Skin exam: PRESENT: dry, intact, warm. ABSENT: cyanosis, rash Results Laboratory Results: 03/06/17 09:34 03/06/17 11:00 03/06/17 03/06/17 03/06/17 09:34 09:34 11:00 WBC 8.6 RBC 4.83 Hgb 15.1 Hct 41.6 MCV 86 MCH 31.2 MCHC 36.2 H RDW 14.3 H Plt Count 435 Seg Neutrophils % 67.7 Lymphocytes % 20.1 Monocytes % 7.7 Eosinophils % 3.4 Basophils % 1.1 Absolute Neutrophils 5.8 Absolute Lymphocytes 1.7 Absolute Monocytes 0.7 Absolute Eosinophils 0.3 Absolute Basophils 0.1 Sodium Cancelled 139.2 Potassium Cancelled 3.4 L Chloride Cancelled 98 Carbon Dioxide Cancelled 31 H Anion Gap Cancelled 10 BUN Cancelled 13 Creatinine Cancelled 0.89 Est GFR ( Amer) Cancelled > 60 Est GFR (Non-Af Amer) Cancelled > 60 Glucose Cancelled 87 Calcium Cancelled 10.2 Impressions: Head CT 03/05/17 09:22 IMPRESSION: NORMAL BRAIN CT WITHOUT CONTRAST. EVIDENCE OF ACUTE STROKE: NO. Assessment & Plan - Diagnosis (1) Acute encephalopathy Is this a current diagnosis for this admission?: Yes Plan: Patient is still confused but better than yesterday. She has become more agitated overnight was given Valium. She appears to have improved from that. This may be related to some benzodiazepine withdrawal. We will start her on scheduled benzodiazepines with as needed also. Patient had been taking narcotics also and we will continue to hold those for now. (2) Fibromyalgia Is this a current diagnosis for this admission?: Yes Plan: Patient is on chronic narcotics as well as baclofen. Will hold both of those for now. (3) Back pain Is this a current diagnosis for this admission?: Yes Plan: We will hold her narcotics for now given her confusion. (4) Asthma Is this a current diagnosis for this admission?: Yes (5) Congestive heart failure Is this a current diagnosis for this admission?: Yes Plan: Patient reports a history of congestive heart failure. Is unclear as to whether this is systolic or diastolic dysfunction. We will continue with the Bumex. - Time Time Spent with patient: 15-24 minutes - Inpatient Certification Medical Necessity: Need Close Monitoring Due to Risk of Patient Decompensation
[2017-03-06 22:03] LABS: URINE BARBITURATES SCREEN NEGATIVE; URINE METHADONE SCREEN NEGATIVE; URINE OPIATES LOW NEGATIVE; URINE PHENCYCLIDINE SCREEN NEGATIVE
[2017-03-06] MEDS: ATORVASTATIN CALCIUM 40 MG TABLET PO SCH (22:13)
[2017-03-07] MEDS: DIAZEPAM 5 MG TABLET PO SCH ×2 (05:41→10:01)
[2017-03-07] MEDS ORDERED: BUMETANIDE 1 MG TABLET ONE (05:54)
[2017-03-07 06:08] LABS: ANION GAP 11 (5-19); BLOOD UREA NITROGEN 11 mg/dL (7-20); CALCIUM 9.4 mg/dL (8.4-10.2); CARBON DIOXIDE 27 mmol/L (22-30); CHLORIDE 104 mmol/L (98-107); GLUCOSE 88 mg/dL (75-110); POTASSIUM 3.5 mmol/L (3.6-5.0); SODIUM 142.1 mmol/L (137-145)
[2017-03-07] MEDS: FAMOTIDINE 20 MG TABLET PO SCH (09:30)
[2017-03-07] MEDS: POTASSIUM CHLORIDE 10 MEQ TABLET.SA PO SCH (09:32)
[2017-03-07] MEDS: FLUTICASONE/SALMETEROL DISKUS 250-50 MCG/DOSE IH SCH (09:33)
[2017-03-07] MEDS: SPIRONOLACTONE 25 MG TABLET PO SCH (09:33)
[2017-03-07] MEDS ORDERED: BUMETANIDE 1 MG TABLET PO SCH (10:00)
[2017-03-07] MEDS ORDERED: LORATADINE 10 MG TABLET PO SCH (10:00)
[2017-03-07] MEDS: ATENOLOL 50 MG TABLET PO SCH (10:04)
--- NOTE | 2017-03-07 11:07 | Physician Advisory Note ---
Physician Advisor ProgressNote .: Pursuant to the plan for [facility], I have reviewed the medical record for this patient. Physician Advisor Statement: CHF -> please state whether "chronic" or "acute", & avoid term "h/o" if this is still present. Thanks! CK
[2017-03-07 11:14] VITALS: BP 92/57
--- NOTE | 2017-03-07 13:26 | PSYCHOLOGICAL NOTE ---
Psych Note - Psych Note Psych Note: 66-year-old female with multiple medical problems goading high blood pressure diabetes reduced ejection fraction but no psychiatric history presents brought in by EMS after being found naked on her front porch. Per her she has been acting differently for 2 days. is not present so I cannot get a history and the patient is not in any shape to give a history. Chart review conducted: Attending nurse noted last night Pt repeatedly attempting to get out of bed. Confused and disoriented and she continues to yell vulgarities out her door. Repeated attempts to reorient pt without success. Evaluation: Upon entering patient's room patient is speaking with attending nurse. Patient discloses that she is confused has no memory of how she arrived to [facility] and states she is scared. Clinician and nurse explained patient arrived to [facility] with an altered mental status. Patient disclosed that she does not remember anything. Patient became tearful and asked if she could call her . Clinician retrieved phone and dialed the phone for patient. Patient held clinician's hand while she talked to her spouse asking her spouse what had happened, what was wrong with her, stating she was scared. Patient's agrees to come to [facility]. Patient disclosed she was told she was found naked on her front porch expresses a high level anxiety and concern in the neighbors seeing her stating "I am not a young woman anymore." Patient states she understands she is in the hospital in [facility]. Patient is alert and orientated to person, place. Mood is anxious with tearful affect. Patient denies suicidal and homicidal ideation. Patient is no longer demonstrating altered mental status i.e. patient thought processes organized, linear rational and linear. Eye contact was well-maintained. Intellectual abilities appear to be within the average range. Attention and concentration are fair. Insight, judgment, impulse control are fair. 298.9 (F29) unspecified psychotic episode; unknown cause Impression\\plan: Patient is considered psychiatrically clear. Patient no longer is demonstrating altered mental status. At this time it is unclear what caused her presentation upon arrival. Patient is currently admitted to [facility] for hospitalist services. If additional additional concerns arise please re- consult. Dr. Mitchell was consulted and the care and management of this patient. thank you for this consultation.
--- NOTE | 2017-03-07 15:14 | PDOC DISCHARGE SUMMARY ---
General - Admit/Disc Date/PCP Admission Date/Primary Care Provider: 03/05/17 12:44 ALVARADO BAXTER MD Discharge Date: 03/07/17 - Discharge Diagnosis (1) Acute encephalopathy Is this a current diagnosis for this admission?: Yes Summary: Most likely secondary to benzodiazepine withdrawal (2) Fibromyalgia Is this a current diagnosis for this admission?: Yes (3) Back pain Is this a current diagnosis for this admission?: Yes (4) Asthma Is this a current diagnosis for this admission?: Yes (5) Congestive heart failure Is this a current diagnosis for this admission?: Yes Summary: Chronic diastolic dysfunction - Additional Information Resuscitation Status: Full Code Discharge Diet: Cardiac Discharge Activity: Activity As Tolerated Home Medications: Atorvastatin Calcium [Lipitor 40 mg Tablet] 40 mg PO QHS 03/05/17 Baclofen [Baclofen 20 mg Tablet] 20 mg PO Q6 03/05/17 Bisoprolol Fumarate [Zebeta 5 mg Tablet] 5 mg PO DAILY 03/05/17 Bumetanide [Bumex 2 mg Tablet] 2 mg PO Q12A 03/05/17 Fluticasone/Salmeterol [Advair 250-50 Diskus 28 dose] 1 puff IH Q12 03/05/17 Oxymorphone HCl [Opana] 5 mg PO Q6HP PRN 03/05/17 Spironolactone [Aldactone 25 mg Tablet] 25 mg PO DAILY 03/05/17 Diazepam [Valium 5 mg Tablet] 10 mg PO Q8 #14 tablet 03/07/17 Flu Vacc [id number] [id number] Up/Pf [Fluzone Adlt Quad [id number] Vac 0.5 ml Syr] 0.5 ml IM .DISCHARGE PRN disp.syrin 03/07/17 History of Present Illness History of Present Illness: RUDY REAL is a 66 year old female who is admitted for encephalopathy. The patient presented with confusion. Patient is very unhelpful and refused to give a full history. The patient reports that her main complaint is back pain. 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 The patient had a head CT that was unremarkable. Patient relates that she was in the emergency room yesterday and told to go up on her Xanax. She reports she has been taking more Xanax but it was Dr. aldana. The patient is somewhat confused and is alert and oriented to person and place but not to time. She denies any headache. Denies any photophobia. Denies any fevers or chills. She does take chronic narcotics in the form of Opana according to the medical record however she is uncertain as to when she took her last pill or how many she took. The patient also is on a muscle relaxant baclofen. She is uncertain as to when she took that last. Her main concern is that she states she has to sleep because she has a dog at home unattended and that she has some painful emotional experience that occurred recently that she cannot discuss with me. Hospital Course Hospital Course: 66-year-old female who presented with confusion. The patient was encephalopathic when she presented. The patient initially there was concern that she was taking both narcotics and benzodiazepines and this may be secondary to the medications. She became more confused and eventually was given Valium with improvement in her symptoms. When she returned to normal mental status and she related to me that she had been taking Xanax 3 times daily every day and went to a new doctor who changed her to once a day. She continue to take it 3 times a day however and ran out of her medications. She then became confused and developed a withdrawal syndrome. The patient is well controlled now on Valium and we will send her home on a Valium taper to hopefully prevent her from having more symptoms. I have asked her to discuss this with her primary care doctor as far as what type of dosing regiment he would like regards to benzodiazepines. She also is taking narcotics for her chronic pain issues. She will continue taking those as she has done previously. The patient is alert and oriented 3 and her is at the bedside on the day of discharge stating that she is back to her usual self. Physical Exam Vital Signs: Temp Pulse Resp BP Pulse Ox 97.9 F 93 19 92/57 L 96 03/07/17 11:12 03/07/17 11:12 03/07/17 11:12 03/07/17 11:12 03/07/17 11:12 Intake & Output 03/06/17 03/07/17 03/08/17 06:59 06:59 06:59 Intake Total 1130 Balance 1130 Weight 76.4 kg General appearance: PRESENT: no acute distress Eye exam: PRESENT: conjunctiva pink. ABSENT: scleral icterus Mouth exam: PRESENT: moist, tongue midline Neck exam: ABSENT: JVD Respiratory exam: PRESENT: clear to auscultation estee. ABSENT: rales, rhonchi, wheezes Cardiovascular exam: PRESENT: RRR. ABSENT: diastolic murmur, rubs, systolic murmur GI/Abdominal exam: PRESENT: normal bowel sounds, soft. ABSENT: distended, guarding, mass, organolmegaly, rebound, tenderness Extremities exam: ABSENT: calf tenderness, clubbing, pedal edema Neurological exam: PRESENT: alert, awake, oriented to person, oriented to place , oriented to time, oriented to situation, CN II-XII grossly intact. ABSENT: motor sensory deficit Psychiatric exam: PRESENT: appropriate affect Skin exam: PRESENT: dry, intact, warm. ABSENT: cyanosis, rash Results Laboratory Results: 03/06/17 09:34 03/07/17 05:04 03/07/17 05:04 Sodium 142.1 Potassium 3.5 L Chloride 104 Carbon Dioxide 27 Anion Gap 11 BUN 11 Creatinine 1.10 Est GFR ( Amer) > 60 Est GFR (Non-Af Amer) 50 L Glucose 88 Calcium 9.4 Impressions: Head CT 03/05/17 09:22 IMPRESSION: NORMAL BRAIN CT WITHOUT CONTRAST. EVIDENCE OF ACUTE STROKE: NO. Qualifiers PATEINT BEING DISCHARGED WITH ANY OF THE FOLLOWING DIAGNOSIS?: No Plan Discharge Plan: Follow-up with primary care in 2 weeks. Time Spent: Greater than 30 Minutes
== END 2017-03-07 11:41 | disposition home or self-care (01) | DRG 896 ==
LOC: ER 09:05 → EH 12:44 → 3W 03-06 20:38
PROVIDERS: ADMIT Family Medicine; ATTEND Family Medicine
DX: F13.239 Sedative, hypnotic or anxiolytic dependence with withdrawal, unspecified (principal); G92 Toxic encephalopathy; I50.32 Chronic diastolic (congestive) heart failure; M79.7 Fibromyalgia; I11.0 Hypertensive heart disease with heart failure; J45.909 Unspecified asthma, uncomplicated; G43.909 Migraine, unspecified, not intractable, without status migrainosus; M54.9 Dorsalgia, unspecified; Z90.710 Acquired absence of both cervix and uterus; Z88.0 Allergy status to penicillin; Z79.899 Other long term (current) drug therapy; Z91.138 Patient's unintentional underdosing of medication regimen for other reason
CPT/HCPCS: 36415; 70450; 80048; 80076; 80307; 81005; 82140; 84443; 84484; 85025; 93005; 93010; 96372; 96374; 99291; J1630; J2250; J3360; J3486; J3490

== ENCOUNTER → 2018-10-16 | Outpatient (CLI) | payer MEDICARE ==
--- NOTE | 2018-10-16 14:07 | RADIOLOGY REPORT (SQ) ---
EXAM DESCRIPTION: CT ABD/PELVIS WITH IV ORAL COMPLETED DATE/TIME: 10/16/2018 1:11 pm REASON FOR STUDY: R10.9 UNSPECIFIED ABDOMINAL PAIN R10.9 UNSPECIFIED ABDOMINAL PAIN COMPARISON: Bilateral renal ultrasound 01/18/2016 Abdominal ultrasound 01/18/2016 TECHNIQUE: CT scan of the abdomen and pelvis performed using helical scanning technique with dynamic intravenous contrast injection. Patient drank oral contrast. Images reviewed with lung, soft tissue , and bone windows. Reconstructed coronal and sagittal MPR images reviewed. Delayed images for evalua tion of the urinary system also acquired. All images stored on PACS. All CT scanners at this facility use dose modulation, iterative reconstruction, and/or weight based d osing when appropriate to reduce radiation dose to as low as reasonably achievable (ALARA). [facility]: Dose Right [facility]: CareDose [facility]: Dose Right [facility]: Teradose 4D [facility]: [employer] CONTRAST TYPE AND DOSE: contrast/concentration: Isovue 350.00 mg/ml; Total Contrast Delivered: 80.0 ml; Total Saline Delivered: 69.0 ml RENAL FUNCTION: Creatinine 1.2 RADIATION DOSE: CT Rad equipment meets quality standard of care and radiation dose reduction techniq ues were employed. CTDIvol: 9.6 - 11.2 mGy. DLP: 1026 mGy-cm.. LIMITATIONS: None. FINDINGS: LOWER CHEST: No significant findings. No nodules or infiltrates. LIVER: Normal size. No masses. No dilated ducts. Less than 5 mm cyst in the left lobe liver SPLEEN: Normal size. No focal lesions. PANCREAS: No masses. No significant calcifications. No adjacent inflammation or peripancreatic fluid collections. Pancreatic duct not dilated. GALLBLADDER: No identified stones by CT criteria. No inflammatory changes to suggest cholecystitis. ADRENAL GLANDS: No significant masses or asymmetry. RIGHT KIDNEY AND URETER: No solid masses. No significant calcifications. No hydronephrosis or hyd roureter. LEFT KIDNEY AND URETER: No solid masses. 2.5 cm left lower pole renal cortical cyst No significant c alcifications. No hydronephrosis or hydroureter. AORTA AND VESSELS: No aneurysm. No dissection. Renal arteries, SMA, celiac without stenosis. RETROPERITONEUM: No retroperitoneal adenopathy, hemorrhage or masses. BOWEL AND PERITONEAL CAVITY: Patient drank oral contrast. No CT evidence of free intraperitoneal air or fluid. No bowel obstruction. Scattered colonic diverticulosis without CT signs of acute diverti culitis APPENDIX: Normal. PELVIS: No mass. No free fluid. Normal bladder. Post hysterectomy ABDOMINAL WALL: Tiny fat containing umbilical hernia BONES: No significant or acute findings. OTHER: No other significant finding. IMPRESSION: NO SIGNIFICANT OR ACUTE FINDING IN THE ABDOMEN OR PELVIS ON CT SCAN WITH IV CONTRAST. TECHNICAL DOCUMENTATION: JOB ID: [id number] Quality ID # [id number]: Final reports with documentation of one or more dose reduction techniques (e.g., Au tomated exposure control, adjustment of the mA and/or kV according to patient size, use of iterative reconstruction technique) 2010 [employer]- All Rights Reserved Reading location - IP/workstation name: [email or web address]
== END ==
LOC: RAD 12:33
PROVIDERS: ATTEND Family Medicine
DX: K57.30 Diverticulosis of large intestine without perforation or abscess without bleeding (principal); R10.9 Unspecified abdominal pain; N28.1 Cyst of kidney, acquired
CPT/HCPCS: 74177; 82565

== ENCOUNTER → 2018-12-11 | Day surgery (SDC) | payer MEDICARE ==
--- NOTE | 2018-12-11 11:37 | Operative Report ---
PROCEDURE: KNEE RADIOFREQUENCY right under ultrasound guidance Preoperative Diagnosis: Right knee osteoarthritis Postoperative Diagnosis: Right knee osteoarthritis 1. Superolateral genicular branch from the vastus lateralis 2. Superomedial genicular branch from the vastus medialis 3. Inferomedial genicular branch from the saphenous nerve 4. Medial retinacular branch from the vastus intermedius DATE OF PROCEDURE: March 12, 2019 ANESTHESIA: Local anesthesia COMPLICATIONS: None reported PROCEDURE IN DETAIL: Hx/PE/meds/allergies/applicable labs reviewed. No changes and no contraindications were found. Full description of the procedure was provided including benefits as well as possible complications including transient increased pain, stomach irritation, mood alteration, transient weakness or parasthesias as well as more serious nerve injury, bleeding, infection or allergic reaction. Informed consent was obtained and documented. The patient was brought to the procedure room and placed on the exam table in a comfortable supine position. The place for needle placement was obtained by manual palpation with ultrasound confirmation. The sterile field was prepared by chloroprep and sterile drapes. Local anesthesia superficial and deep was provided by local infiltration of 2% lidocaine. A 17g 50 mm radiofrequency introducer needle with a 4 mm active tip was placed overlying the right knee joint and using ultrasound guidance the needle was advanced to a bony endpoint on the superiolateral portion of the femoral condyle of the right knee. A second needle was advanced to a bony endpoint on the superiomedial portion of the femoral condyle. A third needle was then placed over the inferiomedial portion of the tibial condyle until a bony endpoint was met. 4th needle placed 3mm above the patella with the tip in contact with the Medial retinacular branch from the vastus intermedius. Attempted aspiration yielded no blood. Transverse ultrasound views showed all the needles at 50% depth of the femur and tibia. Motor stimulation was tested at 2.0 volts with no leg movement. Images were saved in AP and lateral. A mixture consisting of 0.5% bupivacaine was slowly injected. Then a radiofrequency ablation of each of the geniculate nerves were done at 80 degrees Celsius for 2 minutes and 30 seconds each. The needles were withdrawn. The patient tolerated the procedure well. After observation the patient was discharged with instructions and follow up. They were also provided contact information to call regarding any concerning symptoms or questions. IMPRESSION: 1. Successful geniculate right knee radiofrequency ablation was performed. 2. The patient was given prescription of home medicines. 3. RTC in 1-2 week(s).
== END ==
LOC: RAD 11:28
PROVIDERS: ATTEND Family Medicine
DX: M17.11 Unilateral primary osteoarthritis, right knee (principal)
CPT/HCPCS: 64640

== ENCOUNTER → 2019-01-30 | Outpatient (CLI) | payer MEDICARE ==
--- NOTE | 2019-01-30 13:55 | RADIOLOGY REPORT (SQ) ---
EXAM DESCRIPTION: NM GASTRIC EMPTYING STUDY COMPLETED DATE/TIME: 01/30/2019 1:09 pm REASON FOR STUDY: RUQ PAIN (R10.11) R11.10 VOMITING, UNSPECIFIED COMPARISON: None. RADIONUCLIDE AND DOSE: 2.2 millicuries Tc-99m Sulfur Colloid. A wide variety of solid foods have been used. The route of agent administration: Oral. TECHNIQUE: 1 minute serial static imaging performed at time of meal, 1 hour, 2 hours, 3 hours, and 4 hours as needed. Once stomach reaches 90% emptying, the test is complete. Image intensity values pl otted with respect to time with linear regression algorithm. LIMITATIONS: None. FINDINGS: Patient was observed for 4 hours. Immediate post meal serves as baseline. Gastric emptying at 30 minutes was 40%. Gastric emptying at 60 minutes was 65% Gastric emptying at 90 minutes was 79%. Gastric emptying at 240 minutes was 98%. Normal values: 60 minutes: 30-90% retained. If less than 30%, abnormally rapid emptying. If greater than 90%, delaye d gastric emptying. 120 minutes: <60% retained. If greater than 60%, delayed gastric emptying. 240 minutes: <10% retained. If greater than 10%, delayed gastric emptying. IMPRESSION: NORMAL GASTRIC EMPTYING. TECHNICAL DOCUMENTATION: JOB ID: [id number] 1944 [employer]- All Rights Reserved Reading location - IP/workstation name: [email or web address]
== END ==
LOC: RAD 07:46
PROVIDERS: ATTEND Internal Medicine Gastroenterology
DX: R11.10 Vomiting, unspecified (principal)
CPT/HCPCS: 78264; A9541

== ENCOUNTER 2019-06-18 23:36 | Emergency (ER) | payer MEDICARE ==
[2019-06-19] MEDS ORDERED: LORAZEPAM INJ 2 MG/1 ML VIAL IM ONE (00:04)
[2019-06-19] MEDS ORDERED: DIPHENHYDRAMINE HCL 50 MG/ML VIAL IV ONE (00:05)
[2019-06-19] MEDS ORDERED: ZIPRASIDONE MESYLATE INJ/PF 20 MG SDV IM ONE (00:05)
[2019-06-19] MEDS ORDERED: FUROSEMIDE INJ/PF 20 MG/2 ML SDV IV ONE (00:10)
--- NOTE | 2019-06-19 00:20 | ER Document Report ---
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 She needs immediate IV Lasix to take care of her coronavirus. Also patient has a history of ARF opiate overdose hyperkalemia fibromyalgia tobacco abuse and encephalopathy nursing staff came to me for immediate medications for this patient's mental instability. Patient thought I was a [facility] tele-psych doctor. Patient does have bilateral leg edema that is tender to palpation from feet to knees. She also has abrasion to her left anterior barton with a scab approximately 4 cm in length by 1 cm with with no obvious cellulitis noted. TRAVEL OUTSIDE OF THE [place] IN LAST 30 DAYS: No - HPI Onset: Just prior to arrival Onset/Duration: Sudden Quality of pain: No pain Severity: None Associated symptoms: None Exacerbated by: Denies Relieved by: Denies Similar symptoms previously: Yes Recently seen / treated by doctor: Yes - Related Data Allergies/Adverse Reactions: Penicillins Allergy (Verified 03/05/17 09:48) Past Medical History - General Information source: Patient - Family history - Social History Smoking Status: Unknown if Ever Smoked Cigarette use (# per day): No Chew tobacco use (# tins/day): No Smoking Education Provided: No Frequency of alcohol use: None Family History: Reviewed & Not Pertinent, Other - Past Medical History Cardiac Medical History: Reports: Hx Congestive Heart Failure, Hx Hypertension Pulmonary Medical History: Reports: Hx Asthma Neurological Medical History: Reports: Hx Migraine Renal/ Medical History: Denies: Hx Peritoneal Dialysis Musculoskeletal Medical History: Reports Hx Fibromyalgia Psychiatric Medical History: Denies: Hx Depression Past Surgical History: Reports: Hx Hysterectomy - Immunizations Hx Diphtheria, Pertussis, Tetanus Vaccination: Yes Review of Systems - Review of Systems Constitutional: See HPI, Malaise, Weakness EENT: No symptoms reported Cardiovascular: No symptoms reported, Dizziness, Lightheaded Respiratory: See HPI, Hurts to breathe Gastrointestinal: No symptoms reported Genitourinary: No symptoms reported Female Genitourinary: No symptoms reported Musculoskeletal: No symptoms reported, Leg swelling, Ankle swelling Skin: No symptoms reported Hematologic/Lymphatic: No symptoms reported Neurological/Psychological: No symptoms reported Physical Exam - Vital signs Interpretation: Normal - General General appearance: Alert - HEENT Head: Normocephalic Eyes: Normal Conjunctiva: Normal Cornea: Normal Extraocular movements intact: Yes Eyelashes: Normal Pupils: PERRL - Respiratory Respiratory status: No respiratory distress Chest status: Nontender Breath sounds: Normal Chest palpation: Normal - Cardiovascular Rhythm: Regular Heart sounds: Normal auscultation Murmur: No Friction rub: No Rosalino's crunch: No - Abdominal Inspection: Normal Distension: No distension Bowel sounds: Normal Tenderness: Nontender Organomegaly: No organomegaly - Back Back: Normal - Extremities General upper extremity: Normal inspection General lower extremity: Edema - Neurological Neuro grossly intact: Yes Cognition: Normal Orientation: AAOx4 Purnima Coma Scale Eye Opening: Spontaneous [place] Coma Scale Verbal: Oriented [place] Coma Scale Motor: Obeys Commands Purnima Coma Scale Total: 15 Speech: Normal Cranial nerves: Normal Cerebellar coordination: Normal Motor strength normal: LUE, RUE, LLE, RLE - Psychological Associated symptoms: Anxious, Flight of ideas, Manic - Skin Skin Temperature: Warm Skin Moisture: Dry Course - Laboratory Result Diagrams: 06/19/19 02:05 06/19/19 02:05 Laboratory results interpreted by me: 06/19/19 06/19/19 06/19/19 02:05 02:05 02:05 WBC 16.7 H Absolute Neuts (auto) 13.0 H Potassium 3.2 L Chloride 97 L Carbon Dioxide 32 H BUN 23 H Est GFR ( Amer) 59 L Est GFR (MDRD) Non-Af 49 L Glucose 119 H Creatine Kinase 170 H NT-Pro-B Natriuret Pep 804 H Acetaminophen < 10 L Discharge - Discharge Clinical Impression: Psychosis Qualifiers: Psychosis type: unspecified psychosis type Qualified Code(s): F29 - Unspecified psychosis not due to a substance or known physiological condition Condition: Good Disposition: PSYCH HOSP/UNIT Referrals: MAHAD EVANS MD [NO LOCAL MD] - Follow up as needed
--- NOTE | 2019-06-19 01:15 | RADIOLOGY REPORT (SQ) ---
EXAM DESCRIPTION: XR CHEST 1 VIEW COMPLETED DATE/TME: 06/19/2019 00:09 CLINICAL HISTORY: sob COMPARISON: 09/28/2016 FINDINGS: Single frontal view of the chest. Cardiomediastinal silhouette: Tortuosity of thoracic aorta. Heart is not enlarged. Lungs: No consolidation, pneumothorax, or pleural effusion. Stable elevation the left hemidiaphragm. Scattered bilateral calcified granulomas are stable. Bones: Degenerative change of the spine. Upper abdomen: No abnormality identified. IMPRESSION: 1. No acute pulmonary process identified.
[2019-06-19] MEDS ORDERED: MIDAZOLAM 2 MG/2 ML INJ IM ONE (01:28)
[2019-06-19] MEDS ORDERED: CHLORPROMAZINE HCL INJ 25 MG/1 ML AMPULE IM ONE (01:28)
[2019-06-19 02:18] LABS: ABSOLUTE BASOPHILS # (AUTO) 0.2 10^3/uL (0.0-0.2); ABSOLUTE EOSINOPHILS # (AUTO) 0.1 10^3/uL (0.0-0.6); ABSOLUTE LYMPHOCYTES (AUTO) 2.4 10^3/uL (0.5-4.7); BASOPHILS % (AUTO) 1.1 % (0-2); EOSINOPHILS % (AUTO) 0.7 % (0-6); HEMATOCRIT 42.9 % (36.0-47.0); HEMOGLOBIN 14.8 g/dL (12.0-15.5); LYMPHOCYTES % (AUTO) 14.3 % (13-45); MEAN CORPUSCULAR HEMOGLOBIN 29.2 pg (27.0-33.4); MEAN CORPUSCULAR HGB CONC 34.6 g/dL (32.0-36.0); MEAN CORPUSCULAR VOLUME 85 fl (80-97); MONOCYTES % (AUTO) 6.2 % (3-13); PLATELET COUNT 402 10^3/uL (150-450); RED BLOOD COUNT 5.08 10^6/uL (3.72-5.28); RED CELL DISTRIBUTION WIDTH 13.9 % (11.5-14.0); SEGMENTED NEUTROPHILS % (AUTO) 77.7 % (42-78); TOTAL CELLS COUNTED % (AUTO) 100 %; WHITE BLOOD COUNT 16.7 10^3/uL (4.0-10.5)
[2019-06-19 02:21] LABS: INTERNATIONAL RATION (INR) 0.94; PROTHROMBIN TIME 12.6 SEC (11.4-15.4)
[2019-06-19 02:22] LABS: PARTIAL THROMBOPLASTIN TIME 25.6 SEC (23.5-35.8)
[2019-06-19 02:33] LABS: ALBUMIN 4.4 g/dL (3.5-5.0); ALKALINE PHOSPHATASE 99 U/L (38-126); ANION GAP 9 (5-19); ASPARTATE AMINO TRANSFERASE 32 U/L (14-36); BILIRUBIN,TOTAL 1.3 mg/dL (0.2-1.3); BLOOD UREA NITROGEN 23 mg/dL (7-20); CALCIUM 9.9 mg/dL (8.4-10.2); CARBON DIOXIDE 32 mmol/L (22-30); CHLORIDE 97 mmol/L (98-107); CREATINE KINASE 170 U/L (30-135); GLUCOSE 119 mg/dL (75-110); POTASSIUM 3.2 mmol/L (3.6-5.0); TOTAL PROTEIN 7.2 g/dL (6.3-8.2)
[2019-06-19 02:35] LABS: ACETAMINOPHEN < 10 ug/mL (10-30); ALCOHOL < 10 mg/dL (NONE DETECTED)
[2019-06-19 02:43] LABS: NT PRO BNP 804 pg/mL (<125)
[2019-06-19 02:45] LABS: TROPONIN I < 0.012 ng/mL
[2019-06-19 10:52] LABS: APPEARANCE,URINE SLIGHTLY-CLOUDY; BILIRUBIN,URINE NEGATIVE (NEGATIVE); COLOR,URINE YELLOW; GLUCOSE, URINE NEGATIVE (NEGATIVE); KETONES,URINE NEGATIVE (NEGATIVE); LEUKOCYTE ESTERASE,URINE NEGATIVE (NEGATIVE); NITRITE,URINE NEGATIVE (NEGATIVE); PROTEIN,URINE NEGATIVE (NEGATIVE); UROBILINOGEN,URINE NEGATIVE mg/dL (<2.0)
[2019-06-19] MEDS ORDERED: ACETAMINOPHEN 325 MG TABLET PO ONE (10:53)
--- NOTE | 2019-06-19 11:38 | RADIOLOGY REPORT (SQ) ---
EXAM DESCRIPTION: CT HEAD WITHOUT COMPLETED DATE/TIME: 06/19/2019 11:02 am REASON FOR STUDY: altered mental status COMPARISON: 03/15/2017, 11/16/2015 CT brain TECHNIQUE: Axial images acquired through the brain without intravenous contrast. Images reviewed wi th bone, brain and subdural windows. Additional sagittal and coronal reconstructions were generated. Images stored on PACS. All CT scanners at this facility use dose modulation, iterative reconstruction, and/or weight based d osing when appropriate to reduce radiation dose to as low as reasonably achievable (ALARA). [facility]: Dose Right [facility]: CareDose [facility]: Dose Right [facility]: Teradose 4D [facility]: [employer] RADIATION DOSE: CT Rad equipment meets quality standard of care and radiation dose reduction techniq ues were employed. CTDIvol: 53.2 mGy. DLP: 1044 mGy-cm. mGy. LIMITATIONS: None. FINDINGS: VENTRICLES: Normal size and contour. CEREBRUM: No CT evidence of acute large territory ischemic change, acute intracranial hemorrhage, mas s effect, or midline shift. There is low attenuation in the left and right thalamus from old lacunar infarcts. CEREBELLUM: No masses. No hemorrhage. No alteration of density. No evidence for acute infarction. EXTRAAXIAL SPACES: No fluid collections. No masses. ORBITS AND GLOBE: No intra- or extraconal masses. Normal contour of globe without masses. CALVARIUM: No fracture. PARANASAL SINUSES: No fluid or mucosal thickening. SOFT TISSUES: No mass or hematoma. OTHER: No other significant finding. 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 COMMENT: Quality ID # [id number]: Final reports with documentation of one or more dose reduction techniques (e.g., Automated exposure control, adjustment of the mA and/or kV according to patient size, use of iterative reconstruction technique) TECHNICAL DOCUMENTATION: JOB ID: [id number] 2010 [employer]- All Rights Reserved Reading location - IP/workstation name: [email or web address]
[2019-06-19 11:41] LABS: URINE AMPHETAMINES SCREEN NEGATIVE; URINE BARBITURATES SCREEN NEGATIVE; URINE BENZODIAZEPINES SCREEN UNCONFIRMED POSITIVE; URINE COCAINE SCREEN NEGATIVE; URINE MARIJUANA (THC) SCREEN NEGATIVE; URINE METHADONE SCREEN NEGATIVE; URINE PHENCYCLIDINE SCREEN NEGATIVE
--- NOTE | 2019-06-19 13:21 | PSYCHOLOGICAL NOTE ---
Psych Note - Psych Note Date seen by psych provider: 06/19/19 Time seen by psych provider: 09:00 Psych Note: Reason For Consult: Manic Patient reports that she was brought by EMS because her heart last night. She states that she had not slept for 4 days and had not urinated for days. Patient states she has a diagnosis of PTSD however "that has nothing to do with how I feel right now." Patient reports that she is currently working with heart failure. She reports that she is very thirsty and feels dehydrated. She worries about her hydration level due to her previous TIAs. She reports that she has had 3 in the past and that her physician told her that she needs to stay hydrated for her brain to function. Patient is alert and orientated to person, place, time and circumstance. Mood is overall euthymic with congruent affect. Patient denies suicidal and homicidal ideation. Delusions are absent and behaviors congruent with an intact reality based presentation ie organized and linear thought process. Thought content appears to be very focused on her medical conditions/wellbeing. Eye contact is well-maintained. Conversational speech is within normal rate, tone and prosody. Intellectual abilities appear to be within the average range. Attention and concentration are good. Insight, judgment, impulse control are fair. Impression\\plan: Patient is cleared from acute psychiatric services. Patient disclosed a history of PTSD however denies that this is related to her current presentation to [facility]. Historically patient appears to have only been on anxiety medications, but has been off for a few months now. Patient apparently has been cleaning for the last 4 days and is hoping to get further assistance with home health to care for her and her . Patient is no longer presenting manic and is now with normal conversational speech and organized linear conversation. It appears that patient's presentation last night could have resulted from the lack of sleep. She has significant improvement in her presentation now that she has gotten some sleep. The patient is recommended to follow-up with her outpatient medical provider. Dr. Mitchell was consulted to care management of this patient; attending physicians in agreement with recommendations and disposition.
[2019-06-19 15:27] VITALS: BP 114/69
--- NOTE | 2019-06-19 18:26 | EKG REPORT ---
SEVERITY:- ABNORMAL ECG - SINUS TACHYCARDIA VENTRICULAR PREMATURE COMPLEX ABNORMAL T, CONSIDER ISCHEMIA, DIFFUSE LEADS : Confirmed by: Abbie Hoffman MD 19-Jun-2019 18:25:59
== END 2019-06-19 15:24 ==
LOC: ER 23:36
DX: F29 Unspecified psychosis not due to a substance or known physiological condition (principal); R60.0 Localized edema; I50.9 Heart failure, unspecified; I11.0 Hypertensive heart disease with heart failure; J45.909 Unspecified asthma, uncomplicated; R53.1 Weakness
CPT/HCPCS: 93005; 36415; 80307 ×3; 82550; 84443; 85025; 85610; 85730; 80053; 81001; 84484; 83880; 71045; 70450; 93010; J2250; J3230; J1200; J2060; J3486; 96372; 96374; 99284